=== PATIENT | male | born 1995 | race Caucasian/White ===

== ENCOUNTER 2016-06-26 20:17 | Emergency (ER) | payer BC ==
[2016-06-26] MEDS ORDERED: XYLOCAINE 2% and EPINEPHRINE 1:100,000 ONE (20:25)
[2016-06-26] MEDS ORDERED: ADACEL TDaP IM ONE ×2 (20:27→20:30)
[2016-06-26] MEDS ORDERED: NS 1000 ML 1,000 ML ONE (20:29)
[2016-06-26] MEDS ORDERED: ANCEF VIAL 1 GM ONE (20:29)
[2016-06-26] MEDS ORDERED: NS 50 ML IV + SPIKE MINIBAG* 50 ML IV ONE (20:30)
[2016-06-26 20:31] VITALS: BP 163/88; BMI 19.6
[2016-06-26] MEDS ORDERED: NS 1000 ML 1,000 ML IV ONE (20:31)
[2016-06-26] MEDS ORDERED: CLEOCIN 600 MG IV PREMIX 600 MG/50 ML BAG IV ONE (20:34)
[2016-06-26] MEDS ORDERED: NS 50 ML IV 50 ML IV ONE (20:35)
[2016-06-26] MEDS ORDERED: CLEOCIN VIAL 600 MG ONE (20:35)
[2016-06-26] MEDS ORDERED: ZOFRAN INJ 4 MG VIAL IVP ONE (20:45)
[2016-06-26] MEDS ORDERED: DILAUDID INJ IM ONE ×2 (20:45→21:48)
[2016-06-26] MEDS ORDERED: DILAUDID INJ ONE ×2 (20:46→21:43)
[2016-06-26] MEDS ORDERED: ZOFRAN INJ 4 MG VIAL ONE (20:46)
[2016-06-26] MEDS ORDERED: NEOSPORIN OINT ONE (22:00)
--- NOTE | 2016-06-26 22:03 | DR.LACERAT ---
HPI - Time Seen Time seen: 20:26 - Primary Care Physician Primary Care Physician: nfd - Complaints Chief Complaint Doctors Comments: Patient accidentally cut his face with a flute grinder Chief Complaint:: pt has laceration too lt side of face from a flute grinder appox 7 cm in length - Source History Provided: Patient - Mode of Arrival Mode of Arrival: Ambulatory - Timing Onset of Chief Complaint: 06/26/16 PMH - PMH Past Medical History: No Past Surgical History: No - Family History History of Family Medical Conditions: No - Social History Does any household member use tobacco: No Alcohol Use: None Do you use any recreational Drugs:: No Lives With: Family Lives Where: Home - infectious screening In the last 2 months have you had wt loss of >10#?: NO Have you had fever, night sweats or hemotysis?: No Have you traveled outside the country in the last 6 months?: No Isolation: Standard ROS - Review of Systems Eyes: No Symptoms Reported ENTM: No Symptoms Reported Respiratoy: No Symptoms Reported Cardiovascular: No Symptoms Reported Gastrointestinal/Abdominal: No Symptoms Reported Genitourinary: No Symptoms Reported Neurological: No Symptoms Reported Musculoskeletal: No Symptoms Reported Integumentary: Wound (12cm laceration to left cheek and chin) Hematologic/Lymphatic: No Symptoms Reported Endocrine: No Symptoms Reported Psychiatric: No Symptoms Reported All Other Systems: Reviewed and Negative PE - Vital Signs Vitals: Temperature 973 F Pulse Rate 103 Respiratory Rate 18 Blood Pressure 163/88 O2 Sat by Pulse Oximetry 97 - General Limitations: No Limitations General Appearance: Alert, In No Apparent Distress - Head Head Exam: Normal Inspection, Atraumatic - Eyes Eye exam: Normal Appearance, PERRL, EOMI - ENT ENT Exam: Normal Exam - Neck Neck Exam: Normal Inspection, Full ROM - Chest Chest Inspection: Normal Inspection - Respiratory Respiratory Exam: Normal Lung Sounds Bilat Respiratory Exam: Bilateral Clear to Auscultation - Cardiovascular Cardiovascular Exam: Regular Rate, Normal Rhythm - Abdominal Exam Abdominal Exam: Normal Inspection, Normal Bowel Sounds Abdominal Tenderness: RUQ, RLQ, LUQ - Extremities Extremities Exam: Normal Inspection, Full ROM, Tenderness - Back Back Exam: Normal Inspection - Neurologic Neurological Exam: Alert, Oriented X3, CN II-XII Intact - Psychiatric Psychiatric Exam: Normal Affect - Skin Skin Exam: Warm, Dry, Intact Type of Lesion: Laceration (2) Description: Size Course - Reevaluation 1st: Improved Procedures - Laceration/Wound Repair Left Cheek Wound Length (cm): 12 Wound's Depth, Shape: Irregular Wound Explored: clean Betadine Prep?: Yes Anesthesia: 2% Lidocaine w/ Epi Volume Anesthetic (ccs): 12 Wound Repaired With: sutures Suture Size/Type: 5:0 (proline), 4:0, Prolene, Ethilion (6) Number of Sutures: 28 - Diagnosis Discharge Problem: Facial laceration Qualifiers: Encounter type: initial encounter Qualified Code(s): S01.81XA - Laceration without foreign body of other part of head, initial encounter - Discharge Plan Condition: Stable - Follow ups/Referrals Follow ups/Referrals: NFD,None [Primary Care Provider] - 3 days - Instructions
[2016-06-26] MEDS ORDERED: NORCO 7.5/325 MG TAB PO ONE (22:13)
[2016-06-26] MEDS ORDERED: NORCO 7.5/325 MG TAB ONE (22:14)
== END 2016-06-26 22:23 | disposition home or self-care (01) ==
LOC: ER 20:23
PROC: 0WQ20ZZ Repair Face, Open Approach (ICD-10-PCS; principal; 2016-06-26)
DX: S01.81XA Laceration without foreign body of other part of head, initial encounter (principal); W45.8XXA Other foreign body or object entering through skin, initial encounter; Y92.9 Unspecified place or not applicable
CPT/HCPCS: 12015; 90471; 96365; 96374; 96375; 99283; A4222; J0690; J2001; J2405; S0077